=== PATIENT | male | born 1995 | race Caucasian/White ===

== ENCOUNTER 2018-02-14 13:19 | Inpatient (IN) | payer BC, OTHER ==
[2018-02-14] MEDS ORDERED: SODIUM CHLORIDE 0.9% 1,000 ML IV STA ×3 (14:29→14:34)
--- NOTE | 2018-02-14 14:33 | ED ---
General Adult HPI - General Chief complaint: Abdominal Pain Stated complaint: abnormal labs Time Seen by Provider: 02/14/18 14:12 Source: patient, RN notes reviewed, old records reviewed Mode of arrival: ambulatory Limitations: no limitations - History of Present Illness Initial comments: This is a 22-year-old male to the ER for evaluation. Patient brought in the ER for evaluation of abnormal CAT scan. Patient unsure of results. Patient states that he has been feeling nauseous vomiting for about 3-4 days, no chest pain today. No abdominal pain. spell today no fevers. No diarrhea. No recent travel history no sick contacts. Patient takes no medications denies taking Tylenol or alcohol. - Related Data Home Medications Medication Instructions Recorded Confirmed Ibuprofen [Motrin Ib] 400 - 600 mg PO Q6H PRN 02/14/18 02/14/18 Allergies Allergy/AdvReac Type Severity Reaction Status Date / Time No Known Allergies Allergy Verified 02/14/18 13:49 Review of Systems ROS Statement: Those systems with pertinent positive or pertinent negative responses have been documented in the HPI. ROS Other: All systems not noted in ROS Statement are negative. Past Medical History Past Medical History: No Reported History History of Any Multi-Drug Resistant Organisms: None Reported Past Surgical History: No Surgical Hx Reported Past Psychological History: No Psychological Hx Reported Smoking Status: Current some day smoker Past Alcohol Use History: None Reported Past Drug Use History: None Reported General Exam - General Exam Comments Initial Comments: Patient is jaundice Limitations: no limitations General appearance: alert, in no apparent distress Head exam: Present: atraumatic, normocephalic, normal inspection Eye exam: Present: normal appearance, PERRL, EOMI. Absent: scleral icterus, conjunctival injection, periorbital swelling ENT exam: Present: normal exam, mucous membranes moist Neck exam: Present: normal inspection. Absent: tenderness, meningismus, lymphadenopathy Respiratory exam: Present: normal lung sounds bilaterally. Absent: respiratory distress, wheezes, rales, rhonchi, stridor Cardiovascular Exam: Present: normal rhythm, tachycardia, normal heart sounds. Absent: systolic murmur, diastolic murmur, rubs, gallop, clicks GI/Abdominal exam: Present: soft, normal bowel sounds. Absent: distended, tenderness, guarding, rebound, rigid Extremities exam: Present: normal inspection, full ROM, normal capillary refill. Absent: tenderness, pedal edema, joint swelling, calf tenderness Back exam: Present: normal inspection Neurological exam: Present: alert, oriented X3, CN II-XII intact Psychiatric exam: Present: normal affect, normal mood Skin exam: Present: warm, dry, intact, normal color. Absent: rash Course Vital Signs 02/14/18 02/14/18 13:31 16:39 Temperature 100.3 F H 99.1 F Pulse Rate 111 H 99 Respiratory 18 Rate Blood Pressure 134/78 O2 Sat by Pulse 98 Oximetry Medical Decision Making - Medical Decision Making 22 male the ER for evaluation, positive jaundice positive hepatomegaly, patient to be admitted for further evaluation and management, hyperbilirubinemia - Lab Data Result diagrams: 02/14/18 14:25 02/14/18 14:25 Lab Results 02/14/18 02/14/18 02/14/18 Range/Units 14:18 14:25 14:25 WBC (4.0-11.0) k/uL RBC (4.30-5.90) m/uL Hgb (13.0-17.5) gm/dL Hct (39.0-53.0) % MCV (80.0-100.0) fL MCH (25.0-35.0) pg MCHC (31.0-37.0) g/dL RDW (11.5-15.5) % Plt Count (150-450) k/uL Neutrophils % % Lymphocytes % % Monocytes % % Eosinophils % % Basophils % % Neutrophils # (1.3-7.7) k/uL Lymphocytes # (1.0-4.8) k/uL Monocytes # (0-1.0) k/uL Eosinophils # (0-0.7) k/uL Basophils # (0-0.2) k/uL Reactive Lymphocytes Hyperchromasia Poikilocytosis PT (9.0-12.0) sec INR (<1.2) APTT (22.0-30.0) sec Sodium 140 (137-145) mmol/L Potassium 4.3 (3.5-5.1) mmol/L Chloride 98 (98-107) mmol/L Carbon Dioxide 27 (22-30) mmol/L Anion Gap 15 mmol/L BUN 17 (9-20) mg/dL Creatinine 0.90 (0.66-1.25) mg/dL Est GFR (CKD-EPI)AfAm >90 (>60 ml/min/1.73 sqM) Est GFR (CKD-EPI)NonAf >90 (>60 ml/min/1.73 sqM) Glucose 90 (74-99) mg/dL Plasma Lactic Acid Christopher (0.7-2.0) mmol/L Calcium 9.1 (8.4-10.2) mg/dL Phosphorus 4.1 (2.5-4.5) mg/dL Magnesium 2.1 (1.6-2.3) mg/dL Total Bilirubin 6.2 H (0.2-1.3) mg/dL Conjugated Bilirubin 3.3 H (0.0-0.3) mg/dL Unconjugated Bilirubin 1.0 (0.0-1.1) mg/dL Delta Bilirubin 1.9 H (0.0-0.2) mg/dL AST 182 H (17-59) U/L ALT 346 H (21-72) U/L Alkaline Phosphatase 239 H (38-126) U/L Ammonia (<30) umol/L Total Creatine Kinase 29 L (55-170) U/L CK-MB (CK-2) <0.2 (0.0-2.4) ng/mL CK-MB (CK-2) Rel Index Troponin I <0.012 (0.000-0.034) ng/mL Total Protein 7.8 (6.3-8.2) g/dL Albumin 4.3 (3.5-5.0) g/dL Amylase 46 (30-110) U/L Lipase 63 (23-300) U/L Urine Color Dark Brown Urine Appearance Clear (Clear) Urine pH 6.0 (5.0-8.0) Ur Specific [place] >1.050 H (1.001-1.035) Urine Protein 1+ H (Negative) Urine Glucose (UA) Negative (Negative) Urine Ketones 1+ H (Negative) Urine Blood Negative (Negative) Urine Nitrite Negative (Negative) Urine Bilirubin 3+ H (Negative) Urine Urobilinogen 6.0 (<2.0) mg/dL Ur Leukocyte Esterase Negative (Negative) Urine RBC 1 (0-5) /hpf Urine WBC 1 (0-5) /hpf Ur Squamous Epith Cells <1 (0-4) /hpf Acetaminophen <10.0 ug/mL Serum Alcohol <10 mg/dL Hepatitis A IgM Ab Heterophile Antibody (Negative) 02/14/18 02/14/18 02/14/18 Range/Units 14:25 14:25 14:25 WBC 8.6 (4.0-11.0) k/uL RBC 4.85 (4.30-5.90) m/uL Hgb 14.1 (13.0-17.5) gm/dL Hct 39.5 (39.0-53.0) % MCV 81.5 (80.0-100.0) fL MCH 29.0 (25.0-35.0) pg MCHC 35.6 (31.0-37.0) g/dL RDW 13.4 (11.5-15.5) % Plt Count 206 (150-450) k/uL Neutrophils % 32 % Lymphocytes % 47 % Monocytes % 4 % Eosinophils % 1 % Basophils % 1 % Neutrophils # 2.8 (1.3-7.7) k/uL Lymphocytes # 4.0 (1.0-4.8) k/uL Monocytes # 0.3 (0-1.0) k/uL Eosinophils # 0.1 (0-0.7) k/uL Basophils # 0.1 (0-0.2) k/uL Reactive Lymphocytes Present Hyperchromasia Slight Poikilocytosis Slight PT 10.9 (9.0-12.0) sec INR 1.1 (<1.2) APTT 23.5 (22.0-30.0) sec Sodium (137-145) mmol/L Potassium (3.5-5.1) mmol/L Chloride (98-107) mmol/L Carbon Dioxide (22-30) mmol/L Anion Gap mmol/L BUN (9-20) mg/dL Creatinine (0.66-1.25) mg/dL Est GFR (CKD-EPI)AfAm (>60 ml/min/1.73 sqM) Est GFR (CKD-EPI)NonAf (>60 ml/min/1.73 sqM) Glucose (74-99) mg/dL Plasma Lactic Acid Christopher 1.1 (0.7-2.0) mmol/L Calcium (8.4-10.2) mg/dL Phosphorus (2.5-4.5) mg/dL Magnesium (1.6-2.3) mg/dL Total Bilirubin (0.2-1.3) mg/dL Conjugated Bilirubin (0.0-0.3) mg/dL Unconjugated Bilirubin (0.0-1.1) mg/dL Delta Bilirubin (0.0-0.2) mg/dL AST (17-59) U/L ALT (21-72) U/L Alkaline Phosphatase (38-126) U/L Ammonia <9 (<30) umol/L Total Creatine Kinase (55-170) U/L CK-MB (CK-2) (0.0-2.4) ng/mL CK-MB (CK-2) Rel Index Troponin I (0.000-0.034) ng/mL Total Protein (6.3-8.2) g/dL Albumin (3.5-5.0) g/dL Amylase (30-110) U/L Lipase (23-300) U/L Urine Color Urine Appearance (Clear) Urine pH (5.0-8.0) Ur Specific [place] (1.001-1.035) Urine Protein (Negative) Urine Glucose (UA) (Negative) Urine Ketones (Negative) Urine Blood (Negative) Urine Nitrite (Negative) Urine Bilirubin (Negative) Urine Urobilinogen (<2.0) mg/dL Ur Leukocyte Esterase (Negative) Urine RBC (0-5) /hpf Urine WBC (0-5) /hpf Ur Squamous Epith Cells (0-4) /hpf Acetaminophen ug/mL Serum Alcohol mg/dL Hepatitis A IgM Ab Heterophile Antibody (Negative) 02/14/18 02/14/18 Range/Units 14:25 15:23 WBC (4.0-11.0) k/uL RBC (4.30-5.90) m/uL Hgb (13.0-17.5) gm/dL Hct (39.0-53.0) % MCV (80.0-100.0) fL MCH (25.0-35.0) pg MCHC (31.0-37.0) g/dL RDW (11.5-15.5) % Plt Count (150-450) k/uL Neutrophils % % Lymphocytes % % Monocytes % % Eosinophils % % Basophils % % Neutrophils # (1.3-7.7) k/uL Lymphocytes # (1.0-4.8) k/uL Monocytes # (0-1.0) k/uL Eosinophils # (0-0.7) k/uL Basophils # (0-0.2) k/uL Reactive Lymphocytes Hyperchromasia Poikilocytosis PT (9.0-12.0) sec INR (<1.2) APTT (22.0-30.0) sec Sodium (137-145) mmol/L Potassium (3.5-5.1) mmol/L Chloride (98-107) mmol/L Carbon Dioxide (22-30) mmol/L Anion Gap mmol/L BUN (9-20) mg/dL Creatinine (0.66-1.25) mg/dL Est GFR (CKD-EPI)AfAm (>60 ml/min/1.73 sqM) Est GFR (CKD-EPI)NonAf (>60 ml/min/1.73 sqM) Glucose (74-99) mg/dL Plasma Lactic Acid Christopher (0.7-2.0) mmol/L Calcium (8.4-10.2) mg/dL Phosphorus (2.5-4.5) mg/dL Magnesium (1.6-2.3) mg/dL Total Bilirubin (0.2-1.3) mg/dL Conjugated Bilirubin (0.0-0.3) mg/dL Unconjugated Bilirubin (0.0-1.1) mg/dL Delta Bilirubin (0.0-0.2) mg/dL AST (17-59) U/L ALT (21-72) U/L Alkaline Phosphatase (38-126) U/L Ammonia (<30) umol/L Total Creatine Kinase (55-170) U/L CK-MB (CK-2) (0.0-2.4) ng/mL CK-MB (CK-2) Rel Index Troponin I (0.000-0.034) ng/mL Total Protein (6.3-8.2) g/dL Albumin (3.5-5.0) g/dL Amylase (30-110) U/L Lipase (23-300) U/L Urine Color Urine Appearance (Clear) Urine pH (5.0-8.0) Ur Specific [place] (1.001-1.035) Urine Protein (Negative) Urine Glucose (UA) (Negative) Urine Ketones (Negative) Urine Blood (Negative) Urine Nitrite (Negative) Urine Bilirubin (Negative) Urine Urobilinogen (<2.0) mg/dL Ur Leukocyte Esterase (Negative) Urine RBC (0-5) /hpf Urine WBC (0-5) /hpf Ur Squamous Epith Cells (0-4) /hpf Acetaminophen ug/mL Serum Alcohol mg/dL Hepatitis A IgM Ab NEGATIVE Heterophile Antibody Positive (Negative) - Radiology Data Radiology results: report reviewed (CT of the pelvis positive for appendicitis to hepatomegaly with enlarged lymph nodes, ultrasound negative), image reviewed Disposition Clinical Impression: Abdominal pain, Acute hepatitis, Hepatosplenomegaly Disposition: HOME SELF-CARE Condition: Good Is patient prescribed a controlled substance at d/c from ED?: No Referrals: Lico Sharma MD [REFERRING] - 1-2 days
[2018-02-14] MEDS ORDERED: ACETAMINOPHEN IV (For NPO) 1,000 MG in EMPTY BAG 1 BAG IVPB STA (14:35)
[2018-02-14 14:53] LABS: Appearance,Urine Clear (Clear); Bilirubin,Urine 3+ (Negative); Blood,Urine Negative (Negative); Color,Urine Dark Brown; Glucose,Urine (UA) Negative (Negative); Ketones,Urine 1+ (Negative); Leukocyte Esterase,Urine Negative (Negative); Nitrite,Urine Negative (Negative); Protein,Urine 1+ (Negative); RBC,Urine 1 /hpf (0-5); Squamous Epithelial Cell,Urine <1 /hpf (0-4); WBC,Urine 1 /hpf (0-5)
[2018-02-14 15:01] LABS: Basophils # (A) 0.1 k/uL (0-0.2); Basophils % (A) 1 %; Eosinophils # (A) 0.1 k/uL (0-0.7); Eosinophils % (A) 1 %; HCT 39.5 % (39.0-53.0); HGB 14.1 gm/dL (13.0-17.5); Hyperchromasia Slight; Lymphocytes % (A) 47 %; MCHC 35.6 g/dL (31.0-37.0); MCV 81.5 fL (80.0-100.0); Mean Platelet Volume 7.1; Monocytes # (A) 0.3 k/uL (0-1.0); Monocytes % (A) 4 %; Neutrophils # (A) 2.8 k/uL (1.3-7.7); Neutrophils % (A) 32 %; Platelet Count 206 k/uL (150-450); Poikilocytosis Slight; RBC 4.85 m/uL (4.30-5.90); RDW 13.4 % (11.5-15.5); WBC 8.6 k/uL (4.0-11.0)
[2018-02-14 15:02] LABS: ALT 346 U/L (21-72); AST 182 U/L (17-59); Acetaminophen <10.0 ug/mL; Albumin 4.3 g/dL (3.5-5.0); Alcohol <10 mg/dL; Alkaline Phosphatase 239 U/L (38-126); Ammonia <9 umol/L (<30); Amylase 46 U/L (30-110); Anion Gap 15 mmol/L; Bilirubin, Conjugated 3.3 mg/dL (0.0-0.3); Bilirubin, Delta 1.9 mg/dL (0.0-0.2); Blood Urea Nitrogen 17 mg/dL (9-20); Calcium 9.1 mg/dL (8.4-10.2); Carbon Dioxide 27 mmol/L (22-30); Chloride 98 mmol/L (98-107); Glucose 90 mg/dL (74-99); Lactic Acid, Venous 1.1 mmol/L (0.7-2.0); Lipase 63 U/L (23-300); Magnesium 2.1 mg/dL (1.6-2.3); Phosphorus 4.1 mg/dL (2.5-4.5); Potassium 4.3 mmol/L (3.5-5.1); Sodium 140 mmol/L (137-145); Total Bilirubin 6.2 mg/dL (0.2-1.3); Total Protein 7.8 g/dL (6.3-8.2)
--- NOTE | 2018-02-14 15:03 | US ---
EXAMINATION TYPE: US gallbladder DATE OF EXAM: 02/14/2018 COMPARISON: NONE CLINICAL HISTORY: Pain. Abnormal labs, jaundice EXAM MEASUREMENTS: Liver Length: 21.5 cm Gallbladder Wall: 0.3 cm CBD: 0.3 cm Right Kidney: 11.4 x 4.5 x 5.0 cm Pancreas: Obscured by bowel gas Liver: wnl Gallbladder: Lumen clear, contracted, pt states he is NPO Evidence for sonographic Mota's sign: No CBD: wnl Right Kidney: wnl, lower pole gassed out Pancreas is suboptimally seen on images saved secondary to shadowing from overlying bowel gas. Visual ized liver shows no worrisome intrahepatic mass or hepatic ductal dilatation. Gallbladder is contract ed and thus suboptimally evaluated. No shadowing mobile gallstones are seen. IMPRESSION: No worrisome intrahepatic mass or intrahepatic ductal dilatation identified on images marj ed.
[2018-02-14 15:13] LABS: Specific Gravity,Urine >1.050 (1.001-1.035)
[2018-02-14 15:18] LABS: INR 1.1 (<1.2); Partial Thromboplastin Time 23.5 sec (22.0-30.0); Prothrombin Time 10.9 sec (9.0-12.0)
[2018-02-14 15:19] LABS: Creatine Kinase 29 U/L (55-170)
[2018-02-14 15:33] LABS: Creatine Kinase MB <0.2 ng/mL (0.0-2.4); Troponin I <0.012 ng/mL (0.000-0.034)
[2018-02-14 15:50] LABS: Reactive Lymphocytes Present
[2018-02-14 16:40] LABS: Hepatitis A AB IgM Index 0.02; Hepatitis A Antibody IgM NEGATIVE
[2018-02-14] MEDS ORDERED: ONDANSETRON 4 MG/2 ML VIAL IVP STA (17:48)
[2018-02-14] MEDS ORDERED: ONDANSETRON 4 MG/2 ML VIAL IVP PRN (23:03)
[2018-02-14] MEDS ORDERED: NALOXONE 0.4 MG/ML 1 ML VIAL IV PRN (23:03)
[2018-02-14] MEDS ORDERED: MORPHINE SULFATE 4 MG/ML SYRINGE IV PRN (23:03)
--- NOTE | 2018-02-14 23:16 | P.HPIM ---
History of Present Illness H&P Date: 02/14/18 This is 22 -year-old male with no significant past medical history admitted to the [place] for abdominal pain and vomiting that has been going at least for the last several days patient states that he feels better today And abdominal pain resolved patient states that he has been jaundiced for the last few days with some night sweating but denies any chest pain or shortness of breath Review of systems and systems has been reviewed all negative and positive findings as per HPI Past Medical History: No Reported History History of Any Multi-Drug Resistant Organisms: None Reported Past Surgical History: No Surgical Hx Reported Past Psychological History: No Psychological Hx Reported Smoking Status: Current some day smoker Past Alcohol Use History: None Reported Past Drug Use History: None Reported Laboratory Results - last 24 hr 02/14/18 02/14/18 02/14/18 14:18 14:25 14:25 WBC RBC Hgb Hct MCV MCH MCHC RDW Plt Count Neutrophils % Lymphocytes % Monocytes % Eosinophils % Basophils % Neutrophils # Lymphocytes # Monocytes # Eosinophils # Basophils # Reactive Lymphocytes Hyperchromasia Poikilocytosis PT INR APTT Sodium 140 Potassium 4.3 Chloride 98 Carbon Dioxide 27 Anion Gap 15 BUN 17 Creatinine 0.90 Est GFR (CKD-EPI)AfAm >90 Est GFR (CKD-EPI)NonAf >90 Glucose 90 Plasma Lactic Acid Christopher Calcium 9.1 Phosphorus 4.1 Magnesium 2.1 Total Bilirubin 6.2 H Conjugated Bilirubin 3.3 H Unconjugated Bilirubin 1.0 Delta Bilirubin 1.9 H AST 182 H ALT 346 H Alkaline Phosphatase 239 H Ammonia Total Creatine Kinase 29 L CK-MB (CK-2) <0.2 CK-MB (CK-2) Rel Index Troponin I <0.012 Total Protein 7.8 Albumin 4.3 Amylase 46 Lipase 63 Urine Color Dark Brown Urine Appearance Clear Urine pH 6.0 Ur Specific [place] >1.050 H Urine Protein 1+ H Urine Glucose (UA) Negative Urine Ketones 1+ H Urine Blood Negative Urine Nitrite Negative Urine Bilirubin 3+ H Urine Urobilinogen 6.0 Ur Leukocyte Esterase Negative Urine RBC 1 Urine WBC 1 Ur Squamous Epith Cells <1 Acetaminophen <10.0 Serum Alcohol <10 Hepatitis A IgM Ab Heterophile Antibody 02/14/18 02/14/18 02/14/18 14:25 14:25 14:25 WBC 8.6 RBC 4.85 Hgb 14.1 Hct 39.5 MCV 81.5 MCH 29.0 MCHC 35.6 RDW 13.4 Plt Count 206 Neutrophils % 32 Lymphocytes % 47 Monocytes % 4 Eosinophils % 1 Basophils % 1 Neutrophils # 2.8 Lymphocytes # 4.0 Monocytes # 0.3 Eosinophils # 0.1 Basophils # 0.1 Reactive Lymphocytes Present Hyperchromasia Slight Poikilocytosis Slight PT 10.9 INR 1.1 APTT 23.5 Sodium Potassium Chloride Carbon Dioxide Anion Gap BUN Creatinine Est GFR (CKD-EPI)AfAm Est GFR (CKD-EPI)NonAf Glucose Plasma Lactic Acid Christopher 1.1 Calcium Phosphorus Magnesium Total Bilirubin Conjugated Bilirubin Unconjugated Bilirubin Delta Bilirubin AST ALT Alkaline Phosphatase Ammonia <9 Total Creatine Kinase CK-MB (CK-2) CK-MB (CK-2) Rel Index Troponin I Total Protein Albumin Amylase Lipase Urine Color Urine Appearance Urine pH Ur Specific [place] Urine Protein Urine Glucose (UA) Urine Ketones Urine Blood Urine Nitrite Urine Bilirubin Urine Urobilinogen Ur Leukocyte Esterase Urine RBC Urine WBC Ur Squamous Epith Cells Acetaminophen Serum Alcohol Hepatitis A IgM Ab Heterophile Antibody 02/14/18 02/14/18 14:25 15:23 WBC RBC Hgb Hct MCV MCH MCHC RDW Plt Count Neutrophils % Lymphocytes % Monocytes % Eosinophils % Basophils % Neutrophils # Lymphocytes # Monocytes # Eosinophils # Basophils # Reactive Lymphocytes Hyperchromasia Poikilocytosis PT INR APTT Sodium Potassium Chloride Carbon Dioxide Anion Gap BUN Creatinine Est GFR (CKD-EPI)AfAm Est GFR (CKD-EPI)NonAf Glucose Plasma Lactic Acid Christopher Calcium Phosphorus Magnesium Total Bilirubin Conjugated Bilirubin Unconjugated Bilirubin Delta Bilirubin AST ALT Alkaline Phosphatase Ammonia Total Creatine Kinase CK-MB (CK-2) CK-MB (CK-2) Rel Index Troponin I Total Protein Albumin Amylase Lipase Urine Color Urine Appearance Urine pH Ur Specific [place] Urine Protein Urine Glucose (UA) Urine Ketones Urine Blood Urine Nitrite Urine Bilirubin Urine Urobilinogen Ur Leukocyte Esterase Urine RBC Urine WBC Ur Squamous Epith Cells Acetaminophen Serum Alcohol Hepatitis A IgM Ab NEGATIVE Heterophile Antibody Positive Vital Signs - 24 hr 02/14/18 02/14/18 02/14/18 13:31 16:39 18:29 Temperature 100.3 F H 99.1 F 98.9 F Pulse Rate 111 H 99 89 Respiratory 18 16 Rate Blood Pressure 134/78 115/65 O2 Sat by Pulse 98 99 Oximetry 02/14/18 02/14/18 19:00 22:49 Temperature Pulse Rate 87 Respiratory 16 16 Rate Blood Pressure 124/67 O2 Sat by Pulse 98 Oximetry Constitutional: No acute distress, conversant, pleasant Eyes: Jaundiced Assessment and plan ENMT: NC/AT Oropharynx clear, no erythema, exudates Neck: Supple, FROM, no masses, or JVD No carotid bruits No thyromegaly Lungs: Clear to auscultation Clear to percussion Normal respiratory effort, no accessory muscle use Cardiovascular: Heart regular in rate and rhythm, No murmurs, gallops, or rubs No peripheral edema Abdominal: Soft Nontender, jaundiced and distended Skin: Normal temperature, tone, texture, turgor No induration No subcutaneous nodules No rash, lesions No ulcers Extremities: No digital cyanosis No clubbing Pedal pulses intact and symmetrical Radial pulses intact and symmetrical Normal gait and station No calf tenderness Psychiatric:Alert and oriented to person, place and time Appropriate affect Intact judgement Neuro: No obvious weakness Assessment and plan jaundice exact etiology not clear we will consult GI and oncology Hepatosplenomegaly mortal cannot be ruled out but other etiologies also should be considered Vomiting resolved monitor no evidence of appendicitis by computed tomography scan which is done in another hospital please see records in the chart No evidence of cholecystitis No evidence of alexi liver failure at this time we'll monitor closely we will repeat liver function tests in a.m. currently INR will also be monitored Patient denies taking excessive doses of Tylenol Past Medical History Past Medical History: Asthma Additional Past Medical History / Comment(s): tourettes syndrome History of Any Multi-Drug Resistant Organisms: None Reported Past Surgical History: No Surgical Hx Reported Additional Past Surgical History / Comment(s): tubes in ears Past Anesthesia/Blood Transfusion Reactions: No Reported Reaction Smoking Status: Current every day smoker - Past Family History Father Family Medical History: No Reported History Mother Family Medical History: No Reported History Medications and Allergies Home Medications Medication Instructions Recorded Confirmed Type Ibuprofen [Motrin Ib] 400 - 600 mg PO Q6H PRN 02/14/18 02/14/18 History Allergies Allergy/AdvReac Type Severity Reaction Status Date / Time No Known Allergies Allergy Verified 02/14/18 13:49 Physical Exam Vitals: Vital Signs Temp Pulse Resp BP Pulse Ox 02/14/18 22:49 16 02/14/18 19:00 87 16 124/67 98 02/14/18 18:29 98.9 F 89 16 115/65 99 02/14/18 16:39 99.1 F 99 02/14/18 13:31 100.3 F H 111 H 18 134/78 98 Intake and Output 02/14/18 02/14/18 02/15/18 14:59 22:59 06:59 Other: Weight 83.461 kg 83.461 kg Results CBC & Chem 7: 02/14/18 14:25 02/14/18 14:25 Labs: Abnormal Lab Results - Last 24 Hours (Table) 02/14/18 02/14/18 02/14/18 Range/Units 14:18 14:25 14:25 Total Bilirubin 6.2 H (0.2-1.3) mg/dL Conjugated Bilirubin 3.3 H (0.0-0.3) mg/dL Delta Bilirubin 1.9 H (0.0-0.2) mg/dL AST 182 H (17-59) U/L ALT 346 H (21-72) U/L Alkaline Phosphatase 239 H (38-126) U/L Total Creatine Kinase 29 L (55-170) U/L Ur Specific [place] >1.050 H (1.001-1.035) Urine Protein 1+ H (Negative) Urine Ketones 1+ H (Negative) Urine Bilirubin 3+ H (Negative) Thrombosis Risk Factor Assmnt - Choose All That Apply Any of the Below Risk Factors Present?: Yes Each Factor Represents 1 point: Obesity (BMI >25) Thrombosis Risk Factor Assessment Total Risk Factor Score: 1 Thrombosis Risk Factor Assessment Level: Low Risk
[2018-02-15 03:31] VITALS: RESP 18
[2018-02-15 04:00] LABS: Hepatitis B Core IgM Non-Reactive (Non-Reactive)
[2018-02-15 07:06] VITALS: BP 115/62; PULSE 86; TEMP 97.8
[2018-02-15 08:48] LABS: HCT 38.6 % (39.0-53.0); HGB 13.4 gm/dL (13.0-17.5); MCH 29.2 pg (25.0-35.0); MCHC 34.9 g/dL (31.0-37.0); MCV 83.7 fL (80.0-100.0); Mean Platelet Volume 7.3; Platelet Count 206 k/uL (150-450); Poikilocytosis Slight; RBC 4.61 m/uL (4.30-5.90); RDW 13.7 % (11.5-15.5); WBC 8.4 k/uL (4.0-11.0)
[2018-02-15 09:05] LABS: ALT 351 U/L (21-72); AST 224 U/L (17-59); Albumin 3.7 g/dL (3.5-5.0); Alkaline Phosphatase 226 U/L (38-126); Amylase 41 U/L (30-110); Anion Gap 11 mmol/L; Blood Urea Nitrogen 11 mg/dL (9-20); Calcium 8.4 mg/dL (8.4-10.2); Carbon Dioxide 29 mmol/L (22-30); Chloride 100 mmol/L (98-107); Glucose 113 mg/dL (74-99); Lipase 76 U/L (23-300); Sodium 140 mmol/L (137-145); Total Bilirubin 5.6 mg/dL (0.2-1.3)
[2018-02-15 09:26] LABS: Band Neutrophils % 1 %; Eosinophils # (M) 0.08 k/uL (0-0.7); Lymphocytes # (M) 6.22 k/uL (1.0-4.8); Monocytes # (M) 0.34 k/uL (0-1.0); Neutrophils % (M) 21 %; Nucleated Red Blood Cells 0 /100 WBC (0-0); Total Cells Counted 200
[2018-02-15 09:27] LABS: Anisocytosis (M) Present; Reactive Lymphocytes Present
--- NOTE | 2018-02-15 11:34 | P.DS ---
Providers Date of admission: 02/14/18 17:32 Attending physician: Stacy Martin MD Consults: 02/14/18 23:07 Consult Physician Routine Consulting Provider: Kyra Cuevas Consult Reason/Comments: jaundie Do you want consulting provider notified?: Yes 02/14/18 23:08 Consult Physician Routine Consulting Provider: Bro Goddard Consult Reason/Comments: hepatosplenomegaly Do you want consulting provider notified?: Yes Primary care physician: Physician Nonstaff Hospital Course: Final diagnoses at discharge Infectious mononucleosis with hepatitis and splenomegaly Secondary diagnoses Tourette's syndrome Hospital course 22-year-old male with history of Tourette's syndrome presented to the hospital due to generalized fatigue abdominal pain and vomiting. This has been going on for a few days he also reports that initially some sore throat beginning of dictation factors. Denies any fevers or chills at this point. In the ER CAT scan of the abdomen was performed to rule out acute appendicitis, computed tomography scan showed no acute appendicitis however suggested splenomegaly and retroperitoneal lymphadenopathy. Hepatitis panel resulted back negative, patient had picture of cholestasis and acute hepatitis this is thought to be due to infectious mononucleosis. Patient admitted for further workup received supportive care IV fluid hydration diet was advanced gradually as tolerated. Tiarra virus IgM was positive, heterophile Ab positive Patient was seen and examined on day of discharge, patient doing well denies any abdominal pain fevers or chills. He is tolerating diet. Needs eager to go home Constitutional: vital signs stable, Not in acute distress, pleasant, conversant Lungs: Clear to auscultation bilaterally, clear to percussion, normal respiratory effort Cardiovascular: Regular rate and rhythm, no murmurs, no gallops, no rubs, no peripheral edema Gastrointestinal: Soft, no tenderness to palpation, fullness palpable at the left subcostal region no tenderness , no palpable hepatomegaly , bowel sounds positive, no abdominal wall hernias Skin: Unremarkable temperature, tone, texture, and turgor, no rashes Extremities: No digital cyanosis or clubbing, peripheral pulses palpable and equal over bilateral radial arteries and dorsalis pedis artery, no calf muscle tenderness Psych: Alert, oriented to place, person and time, appropriate affect, intact judgment Patient was counseled to avoid contact sports for at least 4 weeks, I suggested that he discuss with his PCP prior to getting involved in contact sports. So that spleen size can be checked. Follow-up on blood work on Monday 02/19 Patient to follow-up with his PCP next week and hit 5 days Patient was discharged in stable clinical condition He verbalized understanding of the above recommendations. Patient father was at bedside. 30 minutes were spent discharging this patient, and more than 50% of the time was spent in counseling the patient and family and in coordinating care. Pertinent Studies: Computed tomography scan of the abdomen Patient Condition at Discharge: Good Plan - Discharge Summary Discharge Rx Participant: Yes New Discharge Prescriptions: New Ibuprofen [Motrin] 600 mg PO Q6HR PRN #24 tab PRN Reason: Pain Ondansetron Odt [Zofran Odt] 4 mg PO Q8HR PRN #6 tab PRN Reason: Nausea And Vomiting Discontinued Ibuprofen [Motrin Ib] 400 - 600 mg PO Q6H PRN PRN Reason: Pain Discharge Medication List Ibuprofen [Motrin] 600 mg PO Q6HR PRN #24 tab 02/15/18 [Rx] Ondansetron Odt [Zofran Odt] 4 mg PO Q8HR PRN #6 tab 02/15/18 [Rx] Follow up Appointment(s)/Referral(s): Lico Sharma MD [REFERRING] - 1-2 days Ambulatory/Diagnostic Orders: Complete Blood Count w/diff [LAB.AMB] Time Frame: 02/19/18, Location: Determined By Patient Comprehensive Metabolic Panel [LAB.AMB] Time Frame: 02/19/18, Location: Determined By Patient Patient Instructions/Handouts: Mononucleosis (GEN) Activity/Diet/Wound Care/Special Instructions: avoid contact sports for at least 4 weeks diet as tolerated, good hydration rest at home until fatigue is resolved and you are able to resume regular activities Discharge Disposition: HOME SELF-CARE
[2018-02-15] MEDS ORDERED: SODIUM CHLORIDE 0.9% 1,000 ML IV SCH (11:45)
--- NOTE | 2018-02-15 12:06 | P.CONS ---
History of Present Illness - Reason for Consult Consult date: 02/15/18 hepatitis Requesting physician: Stacy Martin - History of Present Illness 22-year-old gentleman with a history of Tourette's admitted with sore throat generalized malaise right upper quadrant abdominal discomfort for the last few weeks and new onset of jaundice over the last few days. Patient was evaluated in the outpatient setting where CT was performed in the [facility] area and was told he had an enlarged liver. Additional chemistries in the outpatient setting indicated elevated liver enzymes with sent to the ER for further evaluation. History of hepatitis liver disorders. No history of EtOH abuse or intravenous drug usage. No NSAIDs or aspirin or illicit drug use. Intermittent chills sweats suspected fevers but no documented fever. No sick contacts. No recent travels. White count 8.4-8.6. Hemoglobin 13.4. Reactive lymphocytes and CBC differential. Total bilirubin 6.2. Conjugated 3.3. AST 182. ALT 346. AP 239. Ammonia less than 9. Lipase 63. INR 1.1. LFTs today total bilirubin 5.6. AST 224. ALT 351. AP 226. Acetaminophen and serum alcohol unremarkable. CMV IgG antibody nonreactive, IgM reactive. EBV IgG 69 elevated. Antigen IgM Antibody Greater Than 160. Hepatitis ABC Negative. Heterophile Positive. Ultrasound abdomen liver 21.5 cm. CBD 0.37 L. No stones. No worrisome intrahepatic mass or ductal dilation. Review of Systems Constitutional: Reports fever-like symptoms chills sweats denies weight gain, or loss. HEENT: Negative for migraines, blurred vision or loss, earaches, drainage, tinnitus, oral mucosal lesions, dysphagia, or odynophagia. Cardiac: Negative for chest pain, arrhythmias, or palpitation. Respiratory: Negative for shortness of breath, hemoptysis, cough, or sputum production. Gastrointestinal: See HPI for pertinent findings. Genitourinary: Negative for hematuria, urgency, frequency, polyuria, dysuria, or penile discharge. Musculoskeletal: Chronic tics history of Tourette's. Negative for muscle aches , swelling, arthritis, and arthralgias. Neurologic: Negative for stroke or TIA. Endocrine: Negative for thyroid problems. Skin: Negative for rash or itching. Psychiatric: Negative history for depression and anxiety Past Medical History Past Medical History: Asthma Additional Past Medical History / Comment(s): tourettes syndrome History of Any Multi-Drug Resistant Organisms: None Reported Past Surgical History: No Surgical Hx Reported Additional Past Surgical History / Comment(s): tubes in ears Past Anesthesia/Blood Transfusion Reactions: No Reported Reaction Smoking Status: Current every day smoker - Past Family History Father Family Medical History: No Reported History Mother Family Medical History: No Reported History Medications and Allergies Home Medications Medication Instructions Recorded Confirmed Type Ibuprofen [Motrin] 600 mg PO Q6HR PRN #24 tab 02/15/18 Rx Ondansetron Odt [Zofran Odt] 4 mg PO Q8HR PRN #6 tab 02/15/18 Rx Allergies Allergy/AdvReac Type Severity Reaction Status Date / Time No Known Allergies Allergy Verified 02/14/18 13:49 Physical Exam Vitals: Vital Signs Temp Pulse Pulse Resp BP BP Pulse Ox 02/15/18 07:00 97.8 F 86 18 115/62 97 02/15/18 01:25 99.2 F 82 18 117/76 97 02/14/18 22:49 16 02/14/18 20:00 97.6 F 80 18 118/66 97 02/14/18 19:00 87 16 124/67 98 02/14/18 18:29 98.9 F 89 16 115/65 99 02/14/18 16:39 99.1 F 99 02/14/18 13:31 100.3 F H 111 H 18 134/78 98 Intake and Output 02/14/18 02/15/18 02/15/18 22:59 06:59 14:59 Intake Total 500 600 Balance 500 600 Intake: Oral 500 600 Other: # Voids 2 1 Weight 83.461 kg Results CBC & Chem 7: 02/15/18 08:25 02/15/18 08:25 Labs: Abnormal Lab Results - Last 24 Hours (Table) 02/14/18 02/14/18 02/14/18 Range/Units 14:18 14:25 14:25 Hct (39.0-53.0) % Lymphocytes # (Manual) (1.0-4.8) k/uL Glucose (74-99) mg/dL Total Bilirubin 6.2 H (0.2-1.3) mg/dL Conjugated Bilirubin 3.3 H (0.0-0.3) mg/dL Delta Bilirubin 1.9 H (0.0-0.2) mg/dL AST 182 H (17-59) U/L ALT 346 H (21-72) U/L Alkaline Phosphatase 239 H (38-126) U/L Total Creatine Kinase 29 L (55-170) U/L Ur Specific [place] >1.050 H (1.001-1.035) Urine Protein 1+ H (Negative) Urine Ketones 1+ H (Negative) Urine Bilirubin 3+ H (Negative) CMV IgM Ab (Non-Reactive) EBV Capsid Ag IgG Ab (<18.0) U/mL EBV Capsid Ag IgM Ab (<36.0) U/mL 02/14/18 02/14/18 02/15/18 Range/Units 14:25 14:25 08:25 Hct 38.6 L (39.0-53.0) % Lymphocytes # (Manual) 6.22 H (1.0-4.8) k/uL Glucose (74-99) mg/dL Total Bilirubin (0.2-1.3) mg/dL Conjugated Bilirubin (0.0-0.3) mg/dL Delta Bilirubin (0.0-0.2) mg/dL AST (17-59) U/L ALT (21-72) U/L Alkaline Phosphatase (38-126) U/L Total Creatine Kinase (55-170) U/L Ur Specific [place] (1.001-1.035) Urine Protein (Negative) Urine Ketones (Negative) Urine Bilirubin (Negative) CMV IgM Ab Reactive H (Non-Reactive) EBV Capsid Ag IgG Ab 69.9 H (<18.0) U/mL EBV Capsid Ag IgM Ab >160.0 H (<36.0) U/mL 02/15/18 Range/Units 08:25 Hct (39.0-53.0) % Lymphocytes # (Manual) (1.0-4.8) k/uL Glucose 113 H (74-99) mg/dL Total Bilirubin 5.6 H (0.2-1.3) mg/dL Conjugated Bilirubin (0.0-0.3) mg/dL Delta Bilirubin (0.0-0.2) mg/dL AST 224 H (17-59) U/L ALT 351 H (21-72) U/L Alkaline Phosphatase 226 H (38-126) U/L Total Creatine Kinase (55-170) U/L Ur Specific [place] (1.001-1.035) Urine Protein (Negative) Urine Ketones (Negative) Urine Bilirubin (Negative) CMV IgM Ab (Non-Reactive) EBV Capsid Ag IgG Ab (<18.0) U/mL EBV Capsid Ag IgM Ab (<36.0) U/mL US - abdomen: report reviewed (Dr. Cuevas) Assessment and Plan (1) Acute viral hepatitis Narrative/Plan: 22-year-old gentleman presents with acute onset of jaundice elevated liver enzymes consistent with acute viral hepatitis CMV mononucleosis with positive heterophile and reactive CMV IgM antibody as well as EBV IgM/IgG reactive antibody. Current Visit: Yes Status: Acute Code(s): B17.9 - ACUTE VIRAL HEPATITIS, UNSPECIFIED SNOMED Code(s): 13193951 (2) CMV (cytomegalovirus) antibody positive Current Visit: Yes Status: Acute Code(s): R89.4 - ABNORMAL IMMUNOLOG FINDINGS IN SPECIMENS FROM OTH ORG/TISS SNOMED Code(s): 367236809 (3) Tourettes disease Current Visit: Yes Status: Acute Code(s): F95.2 - TOURETTE'S DISORDER SNOMED Code(s): 1880943 (4) Heterophil-positive mononucleosis syndrome Current Visit: Yes Status: Acute Code(s): B27.90 - INFECTIOUS MONONUCLEOSIS , UNSPECIFIED WITHOUT COMPLICATION SNOMED Code(s): 19856928 (5) Hepatomegaly Narrative/Plan: Suspect secondary to acute viral hepatitis Current Visit: Yes Status: Acute Code(s): R16.0 - HEPATOMEGALY, NOT ELSEWHERE CLASSIFIED SNOMED Code(s): 37179391 Plan: 1. LFTs stable. He feels well. Tolerating diet. Discharge per medicine. Return office in 1-2 weeks for reevaluation. Repeat CBC CMP outpatient setting in 3-5 days. Mononucleosis education provided. Thank you for this kind referral and the opportunity to participate in the care of your patient. This consultation was discussed with Dr. Cuevas. The impression and plan of care have been directed as dictated.
--- NOTE | 2018-02-15 17:55 | P.PN ---
Progress Note - Text Progress Note Date: 02/15/18 Discussed with GI, Hepatomegaly secondary to acute Hepatitis, will defer oncology consult at this time and patient will continue recs from GI standpoint.
== END 2018-02-15 14:00 | disposition home or self-care (01) | DRG 866 ==
LOC: EC 13:19 → 4MS4W 17:32
PROVIDERS: ADMIT Internal Medicine; ATTEND Internal Medicine
DX: B27.19 Cytomegaloviral mononucleosis with other complication (principal); B17.9 Acute viral hepatitis, unspecified; F95.2 Tourette's disorder; J45.909 Unspecified asthma, uncomplicated; F17.200 Nicotine dependence, unspecified, uncomplicated
CPT/HCPCS: 36415; 76705; 80053; 80074; 80320; 81001; 82140; 82150; 82248; 82550; 82553; 83520; 83605; 83690; 83735; 84100; 84484; 85025; 85610; 85730; 86308; 86644; 86645; 86665; 87040; 96361; 96374; 96375; 99285